=== PATIENT | male | born 1960 | race Caucasian/White ===

== ENCOUNTER 2020-03-05 20:03 | Inpatient (IN) | payer BC, OTHER ==
[2020-03-05] MEDS ORDERED: Ondansetron PF 4 MG/2 ML Vial IVP PRN (21:14)
[2020-03-05] MEDS ORDERED: Diltiazem 125 MG in Sodium Chloride 0.9% 100 ML IVPB SCH (21:30)
[2020-03-05] MEDS ORDERED: Morphine 2 MG/ML VIAL SLOW IVP PRN (21:32)
--- NOTE | 2020-03-05 21:32 | PDOC.BPN ---
- Brief Progress Note [id number] HP dictated
--- NOTE | 2020-03-05 22:14 | PDOC.GSCN ---
Surgery Consult: HPI - Consult details Date: 03/05/20 Time: 22:13 History of present illness: 03/05/20 22:13 Chief complaint-my abdomen was hurting History of present illness-the patient is a 59-year-old gentleman with a previous history of atrial fibrillation who, in general, does not follow-up with a regular physician, who presented to an outside emergency room with increasing abdominal pain this morning. Pain was initially on the right-hand side and seemed to radiate up the right paracolic gutter area. Worse with movement. Can get up to 8 or 10. Nothing seemed to make it better. He had breakfast without any difficulty. No history of a prior colonoscopy. At the emergency room, he underwent a CT scan of the abdomen which demonstrated diverticulitis with reported "abundant" pneumoperitoneum. Since being transferred here, he is basically pain-free. His only current concern is a headache. He is able to move around the room in the bed without difficulty. He is hungry. No nausea or vomiting. Surgery Consult: ROS - Review of Systems ROS unobtainable: other (Negative for 10 system, two-point per system other than HPI) Surgery Consult: [facility] Past Medical History: Atrial fibrillation in November. It sounds like he converted on Cardizem. This was a hospitalization due to a dislocated shoulder Past Surgical History: None - Past Family History Pertinent family history: No history of colon cancer - Past Social History Smoking Status: Never smoker Alcohol Use: rarely Drug Use History: none Living Situation: Surgery Consult: Exam - Physical Exam Additional exam: Temperature on the chart from the outside facility 99.1, heart rates ranging in the 80s, blood pressure within normal limits General-[no acute distress, well-nourished], patient moving around in the bed normally without any pain or grimacing Head-[normocephalic, atraumatic] HEENT- [EOMI], [PERRLA] Neck-[trachea midline, supple] Lungs-[grossly clear to auscultation], [normal air movement] Heart-[regular regular], [no murmurs] Abdomen-[soft], [nondistended], minimal tenderness in the lower abdomen, [normal active bowel sounds] Musculosketal-[full range of motion], [no gross deformity] Psychiatric-[good insight, good judgment] Skin-[good turgor, no jaundice] Neuro- [GCS 15], [CN II-XII intact] Surgery Consult: Meds - Medications Medications: Current Medications Famotidine (Famotidine/Pf 20 Mg/2ml Vial) 20 mg SLOW IVP Q12HR MARY Sodium Chloride (Normal Saline 0.9%) 1,000 mls @ 125 mls/hr IV .Q8H MARY Piperacillin Sod/Tazobactam (Sod 3.375 gm/ Sodium Chloride) 100 mls @ 200 mls/hr IVPB Q6HR MARY Diltiazem HCl 125 mg/ Sodium (Chloride) 125 mls @ 5 mls/hr IVPB INF MARY; Protocol Morphine Sulfate (Morphine 2 Mg/Ml Vial) 2 mg SLOW IVP Q4H PRN PRN Reason: Pain Ondansetron HCl (Ondansetron Pf 4 Mg/2 Ml Vial) 4 mg IVP Q6H PRN PRN Reason: Nausea/Vomiting - Allergies Allergies/Adverse Reactions: Allergies Allergy/AdvReac Type Severity Reaction Status Date / Time No Known Allergies Allergy Unverified 03/05/20 22:17 Surgery Consult: A/P - Problem (1) Perforation of sigmoid colon due to diverticulitis Current Visit: Yes Code(s): K57.20 - DVTRCLI OF LG INT W PERFORATION AND ABSCESS W/O BLEEDING Status: Acute Assessment and Plan: I reviewed the documents from the outside emergency room. Patient has a temperature of 99.1. I read the radiologist interpretation of the CT scan. There is mention of pneumoperitoneum as well as diverticulitis. Patient's white blood cell count is 9 from the outside ER. If I did not have a CT scan reading of pneumoperitoneum, I would not suspect that diagnosis given the patient's general presentation this evening (moving normally around in bed, no facial grimacing, etc. )as well as his lack of significant abdominal pain on exam. His abdomen is completely soft. Given this, combined with a white count of 9, I will elect to proceed conservatively with n.p.o. and antibiotic management. He is not acting like someone with pneumoperitoneum/peritonitis. He is hungry and disappointed that he can't eat Labs tomorrow morning. Further decisions to be made at that time based off of his clinical presentation (2) Atrial fibrillation Current Visit: Yes Code(s): I48.91 - UNSPECIFIED ATRIAL FIBRILLATION Status: Acute Assessment and Plan: Per cardiology. Seems to be rate controlled at this time. Per the patient, he has a recent history of atrial fibrillation. He said he followed up with cardiology but he is not currently on any medication
[2020-03-05 22:42] VITALS: BMI 30.9
[2020-03-05] MEDS: Piperacillin/Tazobactam 3.375 GM in Sodium Chloride 0.9% 100 ML IVPB SCH (23:27)
[2020-03-05] MEDS: Sodium Chloride 0.9% 1,000 ML IV SCH (23:28)
--- NOTE | 2020-03-06 01:03 | HP ---
CHIEF COMPLAINT: Abdominal pain. HISTORY OF PRESENT ILLNESS: Mr. Grubbs is a 59-year-old male with no significant past medical history except for short episode of atrial fibrillation/flutter post surgical procedure, which resolved spontaneously, presents to an outside emergency room with abdominal pain that started earlier. Workup in the emergency room, the patient was found to have pneumoperitoneum, suspected ruptured diverticulitis. General surgeon, Dr. Cohen, was consulted and was advised to bring the patient and admit the patient on the hospitalist service and he will see the patient. Also, Cardiology was consulted because the patient was found to be in atrial flutter/fibrillation with RVR. The patient was started on IV diltiazem drip. Currently, patient is in atrial fibrillation with controlled ventricular rate. In the emergency room, the patient was given IV Zosyn, fentanyl. The patient is relatively feeling better with decreased abdominal distention. Denies fever or chills. Denies nausea, vomiting, or diarrhea. The patient is being admitted to our medical facility for further management. PAST MEDICAL HISTORY: Short episode of atrial fibrillation/flutter postprocedure, which resolved spontaneously and no workup was done. PAST SURGICAL HISTORY: Reviewed and not pertinent. FAMILY HISTORY: Reviewed and noncontributory. SOCIAL HISTORY: No history of smoking or alcohol drinking or drug abuse reported. ALLERGIES: NO KNOWN ALLERGIES AT THIS POINT. HOME MEDICATIONS: See home medication reconciliation form for updated medications. REVIEW OF SYSTEMS: Review of 14 systems negative except what is mentioned in history of present illness. PHYSICAL EXAMINATION: GENERAL: The patient is awake, alert, does not appear to be in acute distress. VITAL SIGNS: Blood pressure is 140/80, heart rate is 88, respiratory rate 18, temperature is 98.6. HEAD AND NECK: Normocephalic, atraumatic. NECK: Supple. No JVD. CHEST: Fair bilateral air entry. HEART: Irregularly irregular. ABDOMEN: Mildly distended with mild lower abdominal tenderness. Bowel sounds present. NEUROLOGIC: Awake, alert, and oriented x3. No focal deficits. PSYCHIATRIC: Unable to assess. EXTREMITIES: No clubbing, no cyanosis. GENITOURINARY: No suprapubic tenderness. No flank tenderness. LABORATORY DATA: Reviewed, WBC count is 9000. CT abdomen and pelvis as mentioned above in history of present illness. ASSESSMENT AND PLAN: 1. Acute diverticulitis with perforation/pneumoperitoneum. 2. Atrial fibrillation with rapid ventricular response, ? new onset. PLAN: 1. Admit. 2. Tele monitor. 3. Keep n.p.o. 4. IV fluids. Continue with IV diltiazem drip. 5. IV antibiotics. 6. Pain management with close monitoring of vital signs and pulse ox. The patient requires high dose of IV opiates. 7. We will notify surgeon that patient is on the floor urgently. Discussed with RN to notify the surgeon for evaluation and further recommendations. 8. IV antibiotics. 9. Consult Cardiology for evaluation and further management and we will get a 2D echo. 10. DVT prophylaxis as appropriate. 11. Expected length of stay, 2 midnights or more. Job ID: [id number]
[2020-03-06 04:42] LABS: #Eosinphils 0.1 thou/uL (0.0-0.7); #Monocytes 0.6 thou/uL (0.11-0.59); %Basophils 0.7 % (0.0-1.0); %Eosinophils 1.2 % (0.0-10.0); %Lymphocytes 14.6 % (21.0-51.0); %Monocytes 9.3 % (0.0-10.0); %Neutrophils 74.2 % (42.0-75.0); Hemoglobin 14.1 g/dL (14.0-18.0); Mean Corpuscular HGB CONC 33.3 g/dL (32.0-36.0); Mean Corpuscular Hemoglobin 30.3 pg (27.0-31.0); Mean Corpuscular Volume 90.9 fL (78.0-98.0); Mean Platelet Volume 8.7 fL (7.4-10.4); Platelet Count 104 thou/uL (130-400); RBC Distribution Width 12.9 % (11.5-14.5); Red Blood Cell (RBC) Count 4.66 mill/uL (4.70-6.10); White Blood Cell (WBC) Count 6.7 thou/uL (4.8-10.8)
[2020-03-06 04:51] LABS: Anion Gap 13 mmol/L (10-20); BUN (Urea Nitrogen) 12 mg/dL (8.4-25.7); Calc. Creatinine Clearance 127 mL/min (70-130); Calcium 8.8 mg/dL (7.8-10.44); Carbon Dioxide 17 mmol/L (22-29); Chloride 107 mmol/L (98-107); Glucose 83 mg/dL (70-105); Potassium 3.7 mmol/L (3.5-5.1); Sodium 133 mmol/L (136-145)
[2020-03-06] MEDS: Piperacillin/Tazobactam 3.375 GM in Sodium Chloride 0.9% 100 ML IVPB SCH ×3 (04:59→18:00)
[2020-03-06] MEDS: Sodium Chloride 0.9% 1,000 ML IV SCH ×3 (05:31→20:29)
[2020-03-06] MEDS: Famotidine/PF 20 mg/2ml Vial SLOW IVP SCH ×2 (08:34→20:28)
--- NOTE | 2020-03-06 09:39 | PDOC.GSPN ---
Surgery Progress Note: Subj - Subjective Narrative: The patient is hospital day 2 for perforated diverticulitis. Overnight, he has had no significant issues. He is hungry. He has been up and ambulating outside. His abdominal pain is significantly improved. He does have some right shoulder pain that has come and gone over the last day. He denies any nausea or vomiting. He is passing flatus. Has not had a bowel movement. His pain was more in the left lower quadrant, 3 out of 10, nonradiating, dull and fairly constant. Perhaps somewhat worse with movement. Better with rest. Review of systems-negative for chest pain or shortness of breath. No blood in the stool. Otherwise 10 system, two-point per system negative other than HPI Surgery Progress Note: Obj - Vital signs Vital signs: Vital Signs - Most Recent Temp Pulse Resp BP Pulse Ox 98.1 F 80 18 112/81 92 L 03/06/20 04:00 03/06/20 04:00 03/06/20 04:00 03/06/20 04:00 03/06/20 04:00 - Physical Exam Additional exam: General-[no acute distress, well-nourished] Head-[normocephalic, atraumatic] HEENT- [EOMI], [PERRLA] Neck-[trachea midline, supple] Lungs-[grossly clear to auscultation], [normal air movement] Heart-irregularly irregular, [no murmurs] Abdomen-[soft], [nondistended], very minimal tenderness to palpation the left lower quadrant with deep palpation, [normal active bowel sounds] Musculosketal-[full range of motion], [no gross deformity] Psychiatric-[good insight, good judgment] Skin-[good turgor, no jaundice] Neuro- [GCS 15], [CN II-XII intact] Surgery Progress Note: Results - Labs Result Diagrams: 03/06/20 03:48 03/06/20 03:48 Lab results: Laboratory Results - last 12 hr 03/06/20 03/06/20 03:48 03:48 WBC 6.7 RBC 4.66 L Hgb 14.1 Hct 42.4 MCV 90.9 MCH 30.3 MCHC 33.3 RDW 12.9 Plt Count 104 L MPV 8.7 Neutrophils % 74.2 Lymphocytes % 14.6 L Monocytes % 9.3 Eosinophils % 1.2 Basophils % 0.7 Neutrophils # 5.0 Lymphocytes # 1.0 L Monocytes # 0.6 H Eosinophils # 0.1 Basophils # 0.0 Sodium 133 L Potassium 3.7 Chloride 107 Carbon Dioxide 17 L Anion Gap 13 BUN 12 Creatinine 0.92 Estimated GFR (MDRD) 84 Glucose 83 Calcium 8.8 Surgery Progress Note: A/P - Problem (1) Perforation of sigmoid colon due to diverticulitis Current Visit: Yes Code(s): K57.20 - DVTRCLI OF LG INT W PERFORATION AND ABSCESS W/O BLEEDING Status: Acute Assessment and Plan: The patient has a few vital sign readings that are within normal limits. His white blood cell count is normal. His exam is basically normal. He is already up and ambulating outside. He is hungry. Clinically, he is doing well with conservative management and I do not see a reason for operative intervention at this time. If he did have a perforated diverticula, this has probably sealed in short order. Plan for the day is clear liquids. Continue on IV antibiotics. If he does well, tomorrow switch him over to a low residue diet and oral medications. He may be discharged at that time. He will need to follow-up with me for colonoscopy in 6 to 8 weeks as he has never had 1 before. (2) Atrial fibrillation Current Visit: Yes Code(s): I48.91 - UNSPECIFIED ATRIAL FIBRILLATION Status: Acute Assessment and Plan: Patient had his echo done this morning. He is still in A. fib on physical exam, but it is rate controlled.
--- NOTE | 2020-03-06 12:41 | CON ---
DATE OF CONSULTATION: 03/06/2020 INDICATION FOR CONSULTATION: A 59-year-old gentleman with a pneumoperitoneum, who was found to be in atrial fibrillation. HISTORY OF PRESENT ILLNESS: This is a very pleasant 59-year-old gentleman, who had started developing some abdominal discomfort on evening. He woke up on Sunday morning, continued to have the discomfort. He actually went to work, I think eventually he went to urgent care or to the emergency room due to increasing pain and also it radiated to the right shoulder. He also has some abdominal distention. X-rays revealed a pneumoperitoneum. He was admitted to the hospital. He has been seen by the General Surgery, most likely he had a ruptured diverticulum, this appears to be perhaps even healed that he is feeling better. No intervention is planned. His white count is not significantly elevated. He does not appear to be septic or ill. In the interim, though he was found to be in atrial fibrillation, there was some mention that he may have been in sinus rhythm, I do not see any sinus rhythm on any of the EKGs and he is not actually very tachycardic either. He did have a dislocated shoulder back in November on the left shoulder. He was in [place], this was then repositioned. While he was in the hospital, he was kept for a day or two and he was noted to be in atrial fibrillation, but according to the patient, he did return to sinus rhythm prior to being discharged. All the EKGs here show atrial fibrillation, even the monitoring from the emergency room and from the ambulance also show atrial fibrillation. I do not see any significant tachycardia; however. On evaluation of his CHADS-VASc score, this is very low and he has not been on any medications in the past. He does not have any previous cardiac history that he is aware. 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 Flores and was told everything was fine. 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 Unfortunately, he did not return after the last stress echocardiogram. He has not had any stress echocardiogram for the last several years, but he denies any chest pain or any significant shortness of breath or other abnormalities that would lead us to believe that he has any cardiac problems. PAST MEDICAL HISTORY: Significant for the left shoulder dislocation and the intermittent atrial fibrillation that was documented back in November. FAMILY HISTORY: Noncontributory. SOCIAL HISTORY: There is no history of alcohol or tobacco abuse. He continues to work as senior planner. ALLERGIES: NONE. MEDICATIONS: He was not taking any medications. He does take occasional BC powders or Anacin for headaches. REVIEW OF SYSTEMS: His 12-point review of systems was unremarkable. He denied any HEENT complaints. He denies any pulmonary complaints, asthma, emphysema, or bronchitis. No GI complaints except was noted in history of present illness. No complaints. No musculoskeletal complaints. PHYSICAL EXAMINATION: GENERAL: Reveals a well-developed, well-nourished gentleman, in no acute distress. He is alert. He is oriented. VITAL SIGNS: Stable. Blood pressure is 113/81. He is afebrile. Heart rate is anywhere between the 70s to 80s and does show atrial fibrillation. Respiratory rate 16 and O2 saturation 98% on room air. HEENT: Shows the head to be normocephalic and atraumatic. Carotid pulses are present. There were no bruits. CHEST: Clear to auscultation without rales, rhonchi, or wheezing. CARDIOVASCULAR: Reveals an irregular rhythm. There were no significant murmurs, heaves, thrills, bruits, or rubs. ABDOMEN: Soft and nontender. Positive bowel sounds are present. EXTREMITIES: Show no clubbing, cyanosis, or edema. NEUROLOGIC: The patient is fully intact. LABORATORY DATA: Shows a WBC of 6.7, hemoglobin 14.1, and platelet count was a 104,000. Sodium was 133, potassium was 3.7, BUN was 12 with a creatinine of 0.92, and blood sugar was 83. His echocardiogram, which was performed today showed a normal left ventricular systolic function. Ejection fraction was estimated at 60% to 65%. He did have moderate left atrial dilatation at 5.19 cm. He also had some mild mitral and tricuspid valve regurgitation, but no other significant abnormalities were appreciated. His EKG shows the atrial fibrillation, but no acute changes that would indicate ischemia. His CHADS-VASc score is actually zero. He does not meet criteria for actually having oral anticoagulation, I would suggest he take an aspirin; however. IMPRESSION AND PLAN: 1. Atrial fibrillation with a controlled ventricular response. He is not on any medications. He is completely asymptomatic, most likely be advantageous to try to get him back to regular rhythm. However, his atrial size is 5.17, making it somewhat more difficult to maintain sinus rhythm. We can certainly advice diltiazem or beta rohan to see if this will control or help revert to sinus rhythm. It is unlikely the beta-rohan will convert him to sinus rhythm; however, diltiazem may do so. At this time since he is completely asymptomatic, ejection fraction is normal. CHADS-VASc score zero. It may be better just to continue him and suggest a baby aspirin a day. No oral anticoagulation. He does not meet requirements for oral anticoagulation based on the CHADS-VASc score. 2. Pneumoperitoneum. He has been evaluated by the general surgeons and their recommendation is just to observe. 3. History of abnormal EKGs in the past with some type of block. I am uncertain exactly what they were referring to because he does not have any indication of any significant AV blocks at this time except for the atrial fibrillation. He can follow up with Dr. Flores or someone in our office for outpatient stress testing if so indicated. I did explain to him the possible etiologies of the atrial fibrillation may be due to increased caffeine. He does drink increased caffeine. I suggest that he decrease his caffeine intake. He also need to undergo stress testing to rule out evidence for underlying ischemia as a possible etiology of the atrial fibrillation. Otherwise, he remains stable and from a cardiac standpoint, we will continue to just monitor the patient and would suggest stress testing once the patient is stable after his pneumoperitoneum. Job ID: [id number]
--- NOTE | 2020-03-06 15:45 | PDOC.HOSPP ---
- Subjective Encounter Date: 03/06/20 Subjective: Patient reports he feels generally well. He has no complaints currently other than a tiny area of discomfort in the right upper chest below the right clavicle. Describes it as sharp pain. Tolerating clear liquids well. - Objective Vital Signs & Weight: Vital Signs (12 hours) Temp Pulse Resp BP BP Pulse Ox 03/06/20 11:02 98.4 F 86 113/81 98 03/06/20 08:40 98 03/06/20 08:32 97.6 F 75 16 110/77 98 03/06/20 04:00 98.1 F 80 18 112/81 92 L Weight Weight 228 lb 8 oz Result Diagrams: 03/06/20 03:48 03/06/20 03:48 Hospitalist ROS - Medication Medications: Active Medications Generic Name Dose Route Start Last Admin Trade Name Freq PRN Reason Stop Dose Admin Famotidine 20 mg 03/06/20 09:00 03/06/20 08:34 Famotidine/Pf 20 Mg/2ml Vial SLOW IVP 20 mg Q12HR MARY Administration Sodium Chloride 1,000 mls @ 125 mls/hr 03/05/20 21:15 03/06/20 13:10 Normal Saline 0.9% IV 1,000 mls .Q8H MARY Administration Piperacillin Sod/Tazobactam 100 mls @ 200 mls/hr 03/05/20 23:59 03/06/20 08:34 Sod 3.375 gm/ Sodium Chloride IVPB 100 mls Q6HR MARY Administration Morphine Sulfate 2 mg 03/05/20 21:32 03/05/20 23:28 Morphine 2 Mg/Ml Vial SLOW IVP 2 mg Q4H PRN Administration Severe Pain (7-10) Sodium Chloride 10 ml 03/06/20 09:00 03/06/20 08:35 Flush - Normal Saline 10 Ml Syringe IVF 10 ml Q12HR MARY Administration - Exam General Appearance: NAD, awake alert Heart: RRR, no murmur, no gallops, no rubs, normal peripheral pulses Respiratory: CTAB, no wheezes, no rales, no ronchi, normal chest expansion, no tachypnea, normal percussion Gastrointestinal: soft, non-tender, non-distended, normal bowel sounds, no palpable masses, no hepatomegaly, no splenomegaly, no bruit Extremities: no cyanosis, no clubbing, no edema Skin: normal turgor Neurological: cranial nerve grossly intact Musculoskeletal: normal tone Psychiatric: normal affect, normal behavior, A&O x 3 Hosp A/P (1) Atrial fibrillation Code(s): I48.91 - UNSPECIFIED ATRIAL FIBRILLATION Status: Acute (2) Perforation of sigmoid colon due to diverticulitis Code(s): K57.20 - DVTRCLI OF LG INT W PERFORATION AND ABSCESS W/O BLEEDING Status: Acute - Plan Patient is a 59-year-old male who presented to [facility] urgent care with abdominal pain radiating up into his chest. CT scan of the abdomen showed diverticulitis with "abundant" air in the abdomen. Patient had a normal white count and no fever. His symptoms seem to improve. His exam was fairly benign. He was also noted to be in atrial fibrillation with an episode of RVR. He was transferred here for further evaluation. Atrial fibrillation with rapid ventricular response: Patient apparently has had one episode in the past. Unclear as to when this originated but it looks like he presented to that facility in A. fib. Discussed with cardiology. He is not anticoagulated due to the concerns for the diverticulitis and perforation. Currently has good rate control. Diverticulitis with ruptured diverticulum: Patient's imaging suggest a significant perforation with free air. Patient's exam and labs do not suggest a significant issue. He is afebrile, normal heart rate, normal white count, soft abdomen on exam. General surgery has evaluated the patient. Based on his clinical picture it appears as though a conservative approach makes the most sense. Covered with Zosyn. Clear liquids as tolerated.
[2020-03-07] MEDS: Piperacillin/Tazobactam 3.375 GM in Sodium Chloride 0.9% 100 ML IVPB SCH ×2 (00:04→06:10)
[2020-03-07] MEDS: Sodium Chloride 0.9% 1,000 ML IV SCH (04:47)
[2020-03-07] MEDS: Famotidine/PF 20 mg/2ml Vial SLOW IVP SCH (08:35)
[2020-03-07 09:02] LABS: #Basophils 0.1 thou/uL (0.0-0.2); #Eosinphils 0.1 thou/uL (0.0-0.7); #Lymphocytes 0.9 thou/uL (1.20-3.40); #Monocytes 0.7 thou/uL (0.11-0.59); #Neutrophils 4.7 thou/uL (1.40-6.50); %Basophils 0.9 % (0.0-1.0); %Lymphocytes 13.8 % (21.0-51.0); %Monocytes 10.5 % (0.0-10.0); %Neutrophils 72.9 % (42.0-75.0); Hemoglobin 14.5 g/dL (14.0-18.0); Mean Corpuscular HGB CONC 34.3 g/dL (32.0-36.0); Mean Corpuscular Hemoglobin 31.3 pg (27.0-31.0); Mean Corpuscular Volume 91.3 fL (78.0-98.0); Mean Platelet Volume 8.7 fL (7.4-10.4); Platelet Count 103 thou/uL (130-400); RBC Distribution Width 12.8 % (11.5-14.5); Red Blood Cell (RBC) Count 4.62 mill/uL (4.70-6.10); White Blood Cell (WBC) Count 6.5 thou/uL (4.8-10.8)
[2020-03-07 09:45] VITALS: BP 111/78; TEMP 97.3
--- NOTE | 2020-03-07 11:45 | PDOC.GSPN ---
Surgery Progress Note: Subj - Subjective Narrative: Chief complaint-I am ready to go home History of present illness-the patient is hospital day 3 for perforated diverticulitis. He is hungry. He has been ambulating. No fevers or chills. No nausea or vomiting. He tolerated his clear liquids and was advanced to a soft diet last night. He is desiring more food. No abdominal pain. Shoulder pain is resolved Review of systems negative for 10 system, two-point per system other than HPI Surgery Progress Note: Obj - Vital signs Vital signs: Vital Signs - Most Recent Temp Pulse Resp BP Pulse Ox 97.3 F L 66 16 111/78 96 03/07/20 08:26 03/07/20 08:26 03/07/20 08:26 03/07/20 08:26 03/07/20 08:35 - Physical Exam Additional exam: General-[no acute distress, well-nourished], sitting up on the bedside so far dressed in his street clothes head-[normocephalic, atraumatic] HEENT- [EOMI], [PERRLA] Neck-[trachea midline, supple] Lungs-[grossly clear to auscultation], [normal air movement] Heart-irregularly irregular, [no murmurs] Abdomen-[soft], [nondistended], [nontender], [normal active bowel sounds] Musculosketal-[full range of motion], [no gross deformity] Psychiatric-[good insight, good judgment] Skin-[good turgor, no jaundice] Neuro- [GCS 15], [CN II-XII intact] Surgery Progress Note: Results - Labs Result Diagrams: 03/07/20 08:38 03/06/20 03:48 Lab results: Laboratory Results - last 12 hr 03/07/20 08:38 WBC 6.5 RBC 4.62 L Hgb 14.5 Hct 42.2 MCV 91.3 MCH 31.3 H MCHC 34.3 RDW 12.8 Plt Count 103 L MPV 8.7 Neutrophils % 72.9 Neutrophils % (Manual) Not Reportable Lymphocytes % 13.8 L Monocytes % 10.5 H Eosinophils % 2.0 Basophils % 0.9 Neutrophils # 4.7 Lymphocytes # 0.9 L Monocytes # 0.7 H Eosinophils # 0.1 Basophils # 0.1 Surgery Progress Note: A/P - Problem (1) Perforation of sigmoid colon due to diverticulitis Current Visit: Yes Code(s): K57.20 - DVTRCLI OF LG INT W PERFORATION AND A BSCESS W/O BLEEDING Status: Acute Assessment and Plan: Patient has done well from his hospitalization. He remains afebrile with normal vital signs. His white blood cell count is remain normal. At this point, he has been advised to stay on a low residue diet and follow-up with me in 4 weeks. If he develops any fever over 101.0 or increasing abdominal pain, he should report back to the emergency room or to clinic. He was given my contact information. Overall plan will be low residue diet for the next 2 to 3 weeks. Following that, he will need a colonoscopy in 6 to 8 weeks. Further plans will be taken from there. Patient voiced understanding (2) Atrial fibrillation Current Visit: Yes Code(s): I48.91 - UNSPECIFIED ATRIAL FIBRILLATION Status: Acute Assessment and Plan: Per notes, no thoughts for intervention at this time. Aspirin is treatment
--- NOTE | 2020-03-07 14:25 | PDOC.DS.DS ---
Provider - Provider Date of Admission: 03/05/20 20:03 Date of Discharge: 03/07/20 Admitting Provider: Aristeo Ford MD Consultations: Cardiology, General Surgery Primary Care Physician: Unknown Course - Hospital Course Hospital Course: Patient is a 59-year-old male who presented to [facility] urgent care with abdominal pain radiating up into his chest. CT scan of the abdomen showed diverticulitis with "abundant" air in the abdomen. Patient had a normal white count and no fever. His symptoms seem to improve. His exam was fairly benign. He was also noted to be in atrial fibrillation with an episode of RVR. He was transferred here for further evaluation. Atrial fibrillation with rapid ventricular response: Patient apparently has had one episode in the past. Unclear as to when this originated but it looks like he presented to that facility in A. fib. Is not initially anticoagulated due to the possible need for surgical intervention of the abdomen. Cardiology was consulted. He had generally good rate control with oral diltiazem. His [id number] score was 0. The plan was for aspirin only. He will follow up with cardiology as an outpatient for further evaluation. Diverticulitis with ruptured diverticulum: Patient's imaging suggest a significant perforation with free air. Patient's exam and labs did not suggest a significant issue. He was afebrile, had a normal white cell count, normal abdominal exam and no tachycardia. General surgery was consulted. There is no indication for acute intervention. He was started on IV Zosyn. He was subsequently allowed to have clear liquids and advanced his diet. Once he was taking adequate p.o. and remained afebrile with a benign exam he was felt appropriate to transition out of the hospital. Resuscitation Status: 03/05/20 21:14 Resuscitation Status Routine Resuscitation Status: FULL: Full Resuscitation - Labs Lab Results: 03/07/20 08:38 03/06/20 03:48 Abnormal Lab Results - Last 48 hrs 03/06/20 03:48: Sodium 133 L, Carbon Dioxide 17 L 03/06/20 03:48: RBC 4.66 L, Plt Count 104 L, Lymphocytes % 14.6 L, Lymphocytes # 1.0 L, Monocytes # 0.6 H 03/07/20 08:38: RBC 4.62 L, MCH 31.3 H, Plt Count 103 L, Lymphocytes % 13.8 L, Monocytes % 10.5 H, Lymphocytes # 0.9 L, Monocytes # 0.7 H - Physical Exam Vitals: Vital Signs (12 hours) Temp Pulse Resp BP BP Pulse Ox 03/07/20 08:35 96 03/07/20 08:26 97.3 F L 66 16 111/78 96 03/07/20 03:40 99.0 F 79 16 117/88 97 Weight Weight 227 lb 9.6 oz Physical Exam: The patient was seen and examined on the day of discharge. Problem - Problem (1) Atrial fibrillation Code(s): I48.91 - UNSPECIFIED ATRIAL FIBRILLATION Status: Acute (2) Perforation of sigmoid colon due to diverticulitis Code(s): K57.20 - DVTRCLI OF LG INT W PERFORATION AND ABSCESS W/O BLEEDING Status: Acute Plan - Discharge Medications Prescriptions: Amoxicillin/Potassium Clav [Augmentin 875-125 Tablet] 1 each PO BID #10 tablet Diltiazem HCl [Cardizem CD] 180 mg PO DAILY #30 cap Home Medications: Medication Instructions Recorded Confirmed Type Amoxicillin/Potassium Clav 1 each PO BID #10 tablet 03/07/20 Rx [Augmentin 875-125 Tablet] Diltiazem HCl [Cardizem CD] 180 mg PO DAILY #30 cap 03/07/20 Rx Allergies: No Known Allergies Allergy (Verified 03/05/20 22:37) - Discharge Instructions Activity:: Activity as Tolerated Nourishment:: No Restrictions Additional Dietary Instructions:: Minimize caffeine - Follow up Plan Referrals: Sameer Arreguin MD [Active] - 14 Days (Please call Dr. Arreguin' office to set up a follow up appointment for 2 weeks after discharge. ) Devon Obrien MD [Active] - 7 Days (Please follow up with Dr Obrien or another Primary Care provider in 7days. Call the office to schedule an appointment.) Aamir Cohen MD [Active] - 3-4 Weeks (Please call Dr. Cohen' office to set up a follow up appointment for about 4 weeks after discharge.) Disposition: HOME Quality - Care Measures CORE MEASURES:: N/A
--- NOTE | 2020-03-07 17:58 | PDOC.CPN ---
- Subjective Date: 03/07/20 Time: 10:20 Interval history: No overnight events, patient is doing well, he remains in atrial fibrillation, heart rate remains in the 60's. He denies any cardiac complaints today. He is asking to be discharged home. - Review of Systems General: denies: fever/chills, weight/appetite/sleep changes, night sweats, fatigue Respiratory: denies: cough, congestion, shortness of breath, exercise intolerance Cardiovascular: denies: chest pain, palpitation, edema, paroxysmal nocturnal dyspnea, orthopnea Gastrointestinal: denies: nausea, vomiting, diarrhea, constipation, abd pain, GI bleeding Musculoskeletal: denies: pain, tenderness, stiffness, swelling, arthritis/arthralgias Neurological: denies: numbness, syncope, seizure, weakness - Objective Allergies/Adverse Reactions: Allergies Allergy/AdvReac Type Severity Reaction Status Date / Time No Known Allergies Allergy Verified 03/05/20 22:37 Vital Signs & Weight: Vital Signs Temp Pulse Resp BP Pulse Ox 03/07/20 08:35 96 03/07/20 08:26 97.3 F L 66 16 111/78 96 Weight 227 lb 9.6 oz - Quality Measures Condition: Atrial Fibrillation/Flutter (hx or current) CV meds: ASA: Yes - Physical Exam General: alert & oriented x3, appears well, no apparent distress HEENT: mucus membranes moist Neck: supple neck, midline trachea, no JVD/HJR, no masses, no bruit Cardiac: irregularly regular Lungs: clear to auscultation, normal breath sounds, normal exam, no wheeze, rales, rhonchi Neuro: grossly intact, motor function intact, sensory function intact Abdomen: active bowel sounds, soft, non-tender Extremities: no cyanosis, no clubbing, no edema, 2+ popliteal, 2+ Posterior Tibial, 2+ Dorsalis Pedus Skin: clear Musculoskeletal: normal range of motion, no pain, no fluid collection - Labs Result Diagrams: 03/07/20 08:38 03/06/20 03:48 - EKG Interpretation EKG Method: Telemetry EKG shows: atrial fibrillation - Assessment/Plan Assessment/Plan: 1. Atrial fibrillation: patient remains in atrial fibrillation, his rate does remain relatively well controlled, he did have a couple of 2 second pauses this morning per telemetry records. The patient remains asymptomatic. We will continue Cardizem 180 mg PO daily. Discussed decreaseing caffeine intake. His CHADS-VASC score is 0, he does not need OAC at this time. Would like to follow- up as on outpatient, will have patient wear event monitor to monitor heart rhythm. 2. Pnuemoperitoneum: treated by primary care services.
== END 2020-03-07 13:00 | disposition home or self-care (01) | DRG 392 ==
LOC: 2NO 20:03
PROVIDERS: ADMIT Internal Medicine; ATTEND Internal Medicine
DX: K57.20 Diverticulitis of large intestine with perforation and abscess without bleeding (principal); I48.91 Unspecified atrial fibrillation; K66.8 Other specified disorders of peritoneum
CPT/HCPCS: 36415; 80048; 85025; 93306; J2270; J2543; J3490; S0028

== ENCOUNTER 2024-10-22 08:12 | Outpatient (CLI) | payer BC ==
[2024-10-22 09:43] LABS: #Basophils 0.05 10x3/uL (0.0-0.2); #Eosinophils 0.07 10x3/uL (0.0-0.7); #Monocytes 0.40 10x3/uL (0.11-0.59); #Neutrophils 2.90 10x3/uL (1.40-6.50); %Basophils 1.1 % (0.0-1.0); %Eosinophils 1.6 % (0.0-10.0); %Lymphocytes 21.9 % (21.0-51.0); %Monocytes 9.1 % (0.0-10.0); %Neutrophils 66.1 % (42.0-75.0); Hematocrit 45.6 % (42.0-52.0); Hemoglobin 15.5 g/dL (14.0-18.0); Mean Corpuscular Hemoglobin 31.1 pg (27.0-31.0); Mean Corpuscular Volume 91.6 fL (78.0-98.0); Platelet Count 130 10x3/uL (130-400); Red Blood Cell (RBC) Count 4.98 mill/uL (4.70-6.10); White Blood Cell (WBC) Count 4.39 10x3/uL (4.8-10.8)
[2024-10-22 09:55] LABS: INR-International Normal Ratio 1.2; PTT 35.3 sec (22.9-36.1); Prothrombin Time 15.0 sec (12.0-14.7)
[2024-10-22 10:00] LABS: Anion Gap 11 mmol/L (10-20); BUN (Urea Nitrogen) 14 mg/dL (8.4-25.7); Calc. Creatinine Clearance 0 mL/min (70-130); Calcium 9.9 mg/dL (7.8-10.44); Carbon Dioxide 25 mmol/L (23-31); Chloride 107 mmol/L (98-107); Glucose 100 mg/dL (80-115); Potassium 4.5 mmol/L (3.5-5.1); Sodium 138 mmol/L (136-145)
== END 2024-10-22 08:13 | disposition home or self-care (01) ==
LOC: LABBT 08:12
PROVIDERS: ATTEND Internal Medicine Cardiovascular Disease
DX: Z01.812 Encounter for preprocedural laboratory examination (principal); I48.19 Other persistent atrial fibrillation
CPT/HCPCS: 80048; 85025; 85610; 85730

== ENCOUNTER 2024-10-23 06:20 | Day surgery (SDC) | payer BC ==
[2024-10-22 08:23] VITALS: BMI 30.5
[2024-10-23] MEDS ORDERED: PROPOFOL 40 ML ONE (07:31)
[2024-10-23] MEDS ORDERED: Lidocaine 1% PF 5 ML VIAL ONE (07:31)
== END 2024-10-23 08:55 | disposition home or self-care (01) ==
LOC: SDC 06:20
PROVIDERS: ATTEND Internal Medicine Cardiovascular Disease
PROC: B245ZZ4 Ultrasonography of Left Heart, Transesophageal (ICD-10-PCS; principal; 2024-10-23)
DX: I48.19 Other persistent atrial fibrillation (principal); I08.1 Rheumatic disorders of both mitral and tricuspid valves; I50.30 Unspecified diastolic (congestive) heart failure
CPT/HCPCS: 92960; 93312; J2704